=== PATIENT | male | born 1990 | race Asian ===

== ENCOUNTER 2020-09-03 09:14 | Emergency (ER) | payer OTHER ==
[~2020-09-03] VITALS: Ht 170.2 cm; Wt 78.9 kg
[2020-09-03 09:28] VITALS: Ht 170.2 cm; Wt 78.9 kg
[2020-09-03 10:02] LABS: BASOPHIL % 0.5 % (0.2-1.5); PLATELET COUNT 219 x10^3mcL (152-348); RED CELL DISTRIBUTION WIDTH 13.2 % (12.1-16.2)
[2020-09-03 10:21] LABS: CALCIUM 8.9 mg/dL (8.5-10.1); CARBON DIOXIDE 25.7 mmol/L (21-32); CHLORIDE SERUM 102 mmol/L (98-107); GFR1 > 60 mL/min; GLUCOSE SERUM 132 mg/dL (74-106); POTASSIUM SERUM 3.9 mmol/L (3.5-5.1); SODIUM SERUM 139 mmol/L (136-145)
[2020-09-03 10:25] LABS: ALBUMIN 4.2 g/dL (3.4-5.0); ALKALINE PHOSPHATASE 83 U/L (46-116); ALT/SGPT 41 U/L (16-63); AMYLASE 50 U/L (25-115); AST/SGOT 16 U/L (15-37); BILIRUBIN TOTAL 0.5 mg/dL (0.20-1.00); LIPASE 71 IU/L (73-393); TOTAL PROTEIN, SERUM 7.8 g/dL (6.4-8.2)
[2020-09-03] MEDS ORDERED: ONDANSETRON4 M3 PO (12:02)
[2020-09-03] MEDS ORDERED: MOT600 PO (12:02)
[2020-09-03] MEDS ORDERED: HYDROCODONE BIT1 T51 PO (12:02)
[2020-09-03 12:26] VITALS: BP 99/59
== END 2020-09-03 12:26 | disposition home or self-care (01) ==
LOC: ED 09:14
PROVIDERS: Specialist
DX: N23 Unspecified renal colic (principal)
CPT/HCPCS: J1885; J7030